=== PATIENT | male | born 1955 | race Caucasian/White ===

== ENCOUNTER → 2017-04-14 | Outpatient (REF) | payer OTHER ==
[~2017-04-14] MED LIST: ASPI81TA85 PO; ATOR40TA75 PO; CHEW500C2 PO; FIBEPOW PO; HYDR25TAB PO; MULTCAP; OCUVTAB4 PO; VITA500T88 PO; VITATAB11 PO
== END ==
LOC: M LAB REF 12:52
PROVIDERS: ATTEND Internal Medicine
DX: K14.0 Glossitis (principal)

== ENCOUNTER → 2017-10-31 | Outpatient (CLI) | payer OTHER | LOC: M RAD 07:47 | DX: R42 Dizziness and giddiness (principal) | CPT/HCPCS: 93880 ==

== ENCOUNTER → 2018-05-29 | Outpatient (REF) | payer OTHER | LOC: M LAB REF 12:14 | PROVIDERS: ATTEND Internal Medicine | DX: M10.9 Gout, unspecified (principal) ==

== ENCOUNTER → 2020-06-03 | Outpatient (CLI) | payer OTHER ==
[~2020-06-03] MED LIST changes: +AMLO1TAB24 PO; -ASPI81TA85 PO; +ASPI81TA86 PO; +CALC-362 PO; -CHEW500C2 PO; +D31000TA2 PO; +DEXT350P PO; +ECOT81TA5 PO; +FIBE625T PO; -FIBEPOW PO; +HYDR-2541 PO; -HYDR25TAB PO; +LOSA100T50 PO; +MELO15TA28 PO; +METF500T13 PO; +VITMTA PO
== END ==
LOC: M LABSMTC 12:41
PROVIDERS: ATTEND Anesthesiology
DX: Z20.828 Contact with and (suspected) exposure to other viral communicable diseases (principal)

== ENCOUNTER 2020-06-08 09:27 | Day surgery (SDC) | payer OTHER ==
[~2020-06-08] VITALS: Ht 177.8 cm; Wt 90.2 kg
[~2020-06-08 09:27] MED LIST changes: +NS 1,000 ML IV ONE
--- OUTSIDE RECORDS SUMMARY | 2020-06-08 09:31 | CCD | Continuity of Care Document ---
Author Author Butch CONTRERAS M.D. Organization Unknown Address [address] [place] [address] Phone [phone] Care Team Providers Care Road Engineer Freight Name Role Phone Jarred Wilhelm M.D. AUTM [phone] Problems Active Problems Provider Date Screening for malignant neoplasm of colon Edin love M.D. Onset: 05/28/2020 History of polyp of colon Dai ManzanoNEverardo Onset: Essential hypertension Onset: 11/21/2012 Social History Type Date Description Comments Sex Unknown ETOH Use Occasionally Tobacco Use Start: Unknown Patient has never smoked Allergies, Adverse Reactions, Alerts Active Allergies Reaction Severity Comments Date Codeine 11/21/2012 Talwin 11/21/2012 Medications Active Medications SIG Qnty Indications Ordering Provide r Date Sutab [id number] Tablets as directed 1box Edin Contreras M.D. 05/28/2020 Vitamin C Unknown Calcium Unknown Aspirin 81mg Tablets DR Unknown Multiple Vitamin Tablets Unknown Atorvastatin Calcium 40mg Tablets Unknown Fiber Tablets Unknown Amlodipine Besylate 5mg Tablets Take One Tablet By Mouth Every Day Unknown Meloxicam 15mg Tablets Take One Tablet By Mouth Every Day Unknown Metformin HCL 500mg Tablets Take One Tablet By Mouth In The Morning And 2 Tablets With Supper Unknown Losartan Potassium 100mg Tablets Take One Tablet By Mouth Every Day Unknown Vitamin D 125mcg (5000 Ut) Capsules Unknown Immunizations Description No Information Available Vital Signs Date Vital Result Comment 05/28/2020 9:59am Height 70 inches 5'10" Weight 210.00 lb BP Systolic 130 mmHg BP Diastolic 72 mmHg Heart Rate 72 /min BMI (Body Mass Index) 30.1 kg/m2 Weight 95.256 kg Body Temperature 97.9 F 04/02/2015 2:50pm Height 70 inches 5'10" Weight 217.00 lb BP Systolic 150 mmHg BP Diastolic 98 mmHg Heart Rate 76 /min BMI (Body Mass Index) 31.1 kg/m2 Weight 98.431 kg Results Description No Information Available Procedures Description No Information Available Medical Devices Description No Information Available Encounters Type Date Location Provider Dx Diagnosis Office Visit 05/28/2020 9:15a Main Office Edin Contreras M.D. Z 86.010 Personal history of colonic polyps Assessments Date Code Description Provider 05/28/2020 Z86.010 Personal history of colonic poly ps Edin Contreras M.D. Plan of Treatment Future Appointment(s):* 06/08/2020 11:00 am - Eidn Contreras M.D. at Main Office 05/28/2020 - Edin Contreras M.D.* Z86.010 Personal history of colonic polyps* Comments:* 65 yo wm who presents for a repeat colonoscopy due to a h/o adenomatous polyps in 2010, and 2012. Last scope in 2014 was normal. No c/o abdominal pain, weight loss, change in bowel habits, or rectal bleeding. No family h/o colon cancer. No c/o chest pain, or sob. Comorbid issues of Hyperlipidemia, or Hypertension.Plan:1.Schedule patient for Colonoscopy. 2. Informed consent given.3. Advised to stop asa, plavix,and anticoagulation 3 to 7 days prior to the procedures. Functional Status Description No Information Available Mental Status Description No Information Available Referrals Description No Information Available
--- OUTSIDE RECORDS SUMMARY | 2020-06-08 09:31 | CCD | Continuity of Care Document ---
Author Author Butch Wilhelm MD Organization Unknown Address [address] [place] [address] Phone [phone] Care Team Providers Care Accounting Systems Manager Name Role Phone Jarred Wilhelm JR, MD AUTM Unavailable Problems Active Problems Provider Date Benign essential hypertension Luis Manuel Alex D.O. Ons et: 11/30/2010 Pure hypercholesterolemia Luis Manuel Alex D.O. Onset: 11/30/2010 Type 2 diabetes mellitus Luis Manuel Alex D.O. Onset: 0 07/03/2013 Osteoarthritis Luis Manuel Alex D.O. Onset: 2013 Social History Type Date Description Comments Sex Unknown Tobacco Use Start: Unknown Never Smoked Cigarettes ETOH Use Occasionally consumes beer Tobacco Use Start: Unknown Patient has never smoked Exercise Type/Frequency Exercises regularly Seat Belt/Car Seat always uses seat belt Allergies, Adverse Reactions, Alerts Active Allergies Reaction Severity Comments Date Codeine NAUSEA 11/30/2010 Talwin Nx CHEST HEAVINEST 11/30/2010 Medications Active Medications SIG Qnty Indications Ordering Provide r Date Meloxicam 15mg Tablets 1 by mouth every day 90tabs Jarred Wilhelm MD 09/04/2019 Shingrix 50mcg/0.5ML Suspension Re c administer 0.5 milliliters intramuscular, repeat in 2 to 6 months 2units Jarred Wilhelm MD 05/30/2018 Clotrimazole 2% Cream apply to affected toes twice daily as needed 21gm B35.3 JESSICA Wolfe 08/2017 Cialis 20mg Tablets take by mouth as directed 5tabs Jarred Wilhelm MD 09/30/2016 Cinnamon 500mg Capsules 1 by mouth every day Luis Manuel Alex D.OTrinidad 03/24 Metformin HCL 500mg Tablets take one tablet by mouth in am and 2 with supper 270tabs Jarred Wilhelm MD 09/14/2015 Viagra 100mg Tablets as direc seth 10tabs Marcin MccarthyO. 03/10/2015 Atorvastatin Calcium 40mg Tablets take one tablet by mouth every day 90tabs Jarred Wilhelm MD 07/03/2013 Cozaar 100mg Tablets 1 by mouth every day 90tabs Jarred Wilhelm MD 01/02/2013 Multivitamins Tablets 1 po q d Marcin MccarthyOTrinidad 11/30/2010 Calcium 600 + D [id number] Tab lets 1 po bid Luis Manuel Alex D.O. 11/30 Vitamin D 400 400Unit Chewtabs Marcin MccarthyOTrinidad 11/30/2010 Aspir-[address] 1 po qd 30tabs Marcin MccarthyO. 11/30/2010 Ocuvite Adult Formula Capsules 1 po qd Marcin MccarthyOTrinidad 11/30/2010 Immunizations CPT Code Status Date Vaccine Lot # U-Flu Given 02/13/2020 Influenza,Unspecified [id number] Given 01/28/2019 Influenza Vaccin e Quadrivalent Preser/Antibiotic Free Im Use 36053 Given 11/20/2018 Shingrix Zoster Vaccine (HZV), Recombinant, Subunit, Adjuvanted 40669 Given 03/15/2010 Adacel- Tetanus Diphtheria P ertussis (Age64 & Under) [id number] Refused 01/26/2018 Influenza Virus Vaccine, Quadrivalent ([id number]), Derived From Cell Vital Signs Date Vital Result Comment 03/17/2020 8:05am BP Systolic 132 mmHg BP Diastolic 84 mmHg Heart Rate 80 /min Height 69.50 inches 5'9.50" Weight 192.00 lb O2 % BldC Oximetry 98 % BMI (Body Mass Index) 27.9 kg/m2 09/04/2019 8:24am BP Systolic 134 mmHg BP Diastolic 76 mmHg Heart Rate 76 /min Height 69.50 inches 5'9.50" Weight 191.00 lb BMI (Body Mass Index) 27.8 kg/m2 Results Description No Information Available Procedures Date Code Description Status 03/10/2020 [id number] Diabetic Retinal Eye Exam Comple seth 09/11/2019 [id number] Diabetic Retinal Eye Exam Comple seth 01/07/2019 [id number] Diabetic Retinal Eye Exam Comple seth 07/02/2018 [id number] Diabetic Retinal Eye Exam Comple seth 10/21/2017 [id number] Diabetic Retinal Eye Exam Comple seth 11/29/2016 [id number] Diabetic Foot Exam Completed 06/25/2016 [id number] Diabetic Retinal Eye Exam Comple [facility] 04/06/2015 [id number] Colonoscopy Completed 12/21/2012 [id number] Colonoscopy Completed 07/21/2011 [id number] Diabetic Retinal Eye Exam Comple [facility] 12/15/2010 [id number] Diabetic Retinal Eye Exam Comple [facility] 05/20/2010 [id number] Diabetic Retinal Eye Exam Comple [facility] 10/29/2009 [id number] Diabetic Retinal Eye Exam Comple [facility] 04/02/2009 [id number] Diabetic Retinal Eye Exam Comple [facility] 09/11/2008 [id number] Diabetic Retinal Eye Exam Comple [facility] Medical Devices Description No Information Available Encounters Description No Information Available Assessments Description No Information Available Plan of Treatment No Information Available Functional Status Description No Information Available Mental Status Description No Information Available Referrals Description No Information Available
--- OUTSIDE RECORDS SUMMARY | 2020-06-08 09:31 | CCD | Continuity of Care Document ---
Author Author Butch CONTRERAS M.D. Organization Unknown Address [address] [place] [address] Phone [phone] Care Team Providers Care Horse Trader Name Role Phone Jarred Wilhelm M.D. AUTM [phone] Problems Active Problems Provider Date Screening for [...] Qnty Indications Ordering Provide r Date Sutab [id number] Tablets as directed 1box Edin Contreras M.D. [...] Available Encounters Description No Information Available Assessments Date Code Description Provider 05/28/2020 Z86.010 Personal history of colonic poly ps Edin Contreras M.D. Plan of Treatment Future Appointment(s):* 06/08/2020 11:00 am - Edin Contreras M.D. at Main Office 05/28/2020 - [...]
--- OUTSIDE RECORDS SUMMARY | 2020-06-08 09:31 | CCD ---
Author Author [facility] Organization [facility] Address Unknown Phone Unavailable Care Team Providers Care Jailer Chief Name Role Phone Juan Carlos Contreras MD Unavailable Unavailable Juan Carlos Contreras MD Unavailable Unavailable Juan Carlos Contreras MD Unavailable Unavailable Juan Carlos Contreras MD Unavailable Unavailable Juan Carlos Contreras MD Unavailable Unavailable Juan Carlos Contreras MD Unavailable Unavailable Juan Carlos Contreras MD Unavailable Unavailable Juan Carlos Contreras MD Unavailable Unavailable Juan Carlos Contreras MD Unavailable Unavailable Juan Carlos Contreras MD Unavailable Unavailable Juan Carlos Contreras MD Unavailable Unavailable Juan Carlos Contreras MD Unavailable Unavailable Juan Carlos Contreras MD Unavailable Unavailable Juan Carlos Contreras MD Unavailable Unavailable Juan Carlos Contreras MD Unavailable Unavailable Juan Carlos Contreras MD Unavailable Unavailable Juan Carlos Contreras MD Unavailable Unavailable Juan Carlos Contreras MD Unavailable Unavailable Juan Carlos Contreras MD Unavailable Unavailable Juan Carlos Contreras MD Unavailable Unavailable Juan Carlos Contreras MD Unavailable Unavailable Juan Carlos Contreras MD Unavailable Unavailable Juan Carlos Contreras MD Unavailable Unavailable Juan Carlos Contreras MD Unavailable Unavailable Juan Carlos Contreras MD Unavailable Unavailable Juan Carlos Contreras MD Unavailable Unavailable Juan Carlos Contreras MD Unavailable Unavailable Juan Carlos Contreras MD Unavailable Unavailable Diane, S Edin MD Unavailable Unavailable Diane, S Edin MD Unavailable Unavailable Diane, S Edin MD Unavailable Unavailable Diane, S Edin MD Unavailable Unavailable Diane, S Edin MD Unavailable Unavailable Diane, S Edin MD Unavailable Unavailable Diane, S Edin MD Unavailable Unavailable Diane, S Edin MD Unavailable Unavailable Diane, S Edin MD Unavailable Unavailable Diane, S Edin MD Unavailable Unavailable Diane, S Edin MD Unavailable Unavailable Diane, S Edin MD Unavailable Unavailable Diane, S Edin MD Unavailable Unavailable Diane, S Edin MD Unavailable Unavailable Diane, S Edin MD Unavailable Unavailable Diane, S Edin MD Unavailable Unavailable Diane, S Edin MD Unavailable Unavailable Diane, S Edin MD Unavailable Unavailable Diane, S Edin MD Unavailable Unavailable Diane, S Edin MD Unavailable Unavailable Diane, S Edin MD Unavailable Unavailable Diane, S Edin MD Unavailable Unavailable Giles Alfonso, Jassi Handley MD, FACS Unavailable Unavailable Giles Alfonso, Jassi Handley MD, FACS Unavailable Unavailable Giles Alfonso, Jassi Handley MD, FACS Unavailable Unavailable Giles Alfonso, Jassi Handley MD, FACS Unavailable Unavailable Giles Alfonso, Jassi Handley MD, FACS Unavailable Unavailable Giles Alfonso, Jassi Handley MD, FACS Unavailable Unavailable Giles Alfonso, Jassi Handley MD, FACS Unavailable Unavailable Giles Alfonso, Jassi Handley MD, FACS Unavailable Unavailable Giles Alfonso, Jassi Handley MD, FACS Unavailable Unavailable Giles Alfonso, Jassi Handley MD, FACS Unavailable Unavailable Giles Alfonso, Jassi Handley MD, FACS Unavailable Unavailable Giles Alfonso, Jassi Handley MD, FACS Unavailable Unavailable Giles Alfonso, Jassi Handley MD, FACS Unavailable Unavailable Giles Alfonso, Jassi Handley MD, FACS Unavailable Unavailable Giles Alfonso, Jassi Handley MD, FACS Unavailable Unavailable Giles Alfonso, Jassi Handley MD, FACS Unavailable Unavailable Giles Alfonso, Jassi Handley MD, FACS Unavailable Unavailable Giles Alfonso, Jassi Handley MD, FACS Unavailable Unavailable Giles Alfonso, Jassi Handley MD, FACS Unavailable Unavailable Giles Alfonso, Jassi Handley MD, FACS Unavailable Unavailable Giles Alfonso, Jassi Handley MD, FACS Unavailable Unavailable Giles Alfonso, Jassi Handley MD, FACS Unavailable Unavailable Giles Alfonso, Jassi Handley MD, FACS Unavailable Unavailable Giles Alfonso, Jassi Handley MD, FACS Unavailable Unavailable Giles Alfonso, Jassi Handley MD, FACS Unavailable Unavailable Giles Alfonso, Jassi Handley MD, FACS Unavailable Unavailable Giles Alfonso, Jassi Handley MD, FACS Unavailable Unavailable Giles Alfonso, Jassi Handley MD, FACS Unavailable Unavailable Giles Alfonso, Jassi Handley MD, FACS Unavailable Unavailable Giles Alfonso, Jassi Handley MD, FACS Unavailable Unavailable Giles Alfonso, Jassi Handley MD, FACS Unavailable Unavailable Giles Alfonso, Jassi Handley MD, FACS Unavailable Unavailable Jassi Nguyen MD, FACS Unavailable Unavailable Jassi Nguyen MD, FACS Unavailable Unavailable MAJAK, R TOOTIE DPM Unavailable Unavailable MAJAK, R TOOTIE DPM Unavailable Unavailable MAJAK, R TOOTIE DPM Unavailable Unavailable MAJAK, R TOOTIE DPM Unavailable Unavailable MAJAK, R TOOTIE DPM Unavailable Unavailable MAJAK, R TOOTIE DPM Unavailable Unavailable MAJAK, R TOOTIE DPM Unavailable Unavailable MAJAK, R TOOTIE DPM Unavailable Unavailable MAJAK, R TOOTIE DPM Unavailable Unavailable MAJAK, R TOOTIE DPM Unavailable Unavailable MAJAK, R TOOTIE DPM Unavailable Unavailable MAJAK, R TOOTIE DPM Unavailable Unavailable MAJAK, R TOOTIE DPM Unavailable Unavailable MAJAK, R TOOTIE DPM Unavailable Unavailable MAJAK, R TOOTIE DPM Unavailable Unavailable MAJAK, R TOOTIE DPM Unavailable Unavailable MAJAK, R TOOTIE DPM Unavailable Unavailable MAJAK, R TOOTIE DPM Unavailable Unavailable MAJAK, R TOOTIE DPM Unavailable Unavailable MAJAK, R TOOTIE DPM Unavailable Unavailable MAJAK, R TOOTIE DPM Unavailable Unavailable MAJAK, R TOOTIE DPM Unavailable Unavailable MAJAK, R TOOTIE DPM Unavailable Unavailable MAJAK, R TOOTIE DPM Unavailable Unavailable MAJAK, R TOOTIE DPM Unavailable Unavailable MAJAK, R TOOTIE DPM Unavailable Unavailable MAJAK, R TOOTIE DPM Unavailable Unavailable MAJAK, R TOOTIE DPM Unavailable Unavailable MAJAK, R TOOTIE DPM Unavailable Unavailable MAJAK, R TOOTIE DPM Unavailable Unavailable Zonia Wilhelm MD Unavailable Unavailable Zonia Wilhelm MD Unavailable Unavailable Zonia Wilhelm MD Unavailable Unavailable Zonia Wilhelm MD Unavailable Unavailable Zonia Wilhelm MD Unavailable Unavailable Zonia Wilhelm MD Unavailable Unavailable Zonia Wilhelm MD Unavailable Unavailable Zonia Wilhelm MD Unavailable Unavailable Zonia Wilhelm MD Unavailable Unavailable Zonia Wilhelm MD Unavailable Unavailable ChocoZonia harp MD Unavailable Unavailable ChocoZonia harp MD Unavailable Unavailable ParksZonia harp MD Unavailable Unavailable ParksZonia harp MD Unavailable Unavailable ChocoZonia harp MD Unavailable Unavailable ChocoZonia harp MD Unavailable Unavailable ChocoZonia harp MD Unavailable Unavailable ParksZonia harp MD Unavailable Unavailable ParksZonia harp MD Unavailable Unavailable ParksZonia MD Unavailable Unavailable ParksZonia MD Unavailable Unavailable ChocoZonia MD Unavailable Unavailable ChocoZonia MD Unavailable Unavailable ParksZonia MD Unavailable Unavailable ChocoZonia MD Unavailable Unavailable ParksZonia MD Unavailable Unavailable ChocoZonia MD Unavailable Unavailable ChocoZonia MD Unavailable Unavailable ParksZonia MD Unavailable Unavailable ParksZonia MD Unavailable Unavailable ParksZonia MD Unavailable Unavailable ChocoZonia MD Unavailable Unavailable ChocoZonia MD Unavailable Unavailable ChocoZonia MD Unavailable Unavailable ChocoZonia MD Unavailable Unavailable ParksZonia MD Unavailable Unavailable ParksZonia MD Unavailable Unavailable ChocoZonia MD Unavailable Unavailable ChocoZonia MD Unavailable Unavailable ParksZonia MD Unavailable Unavailable ChocoZonia MD Unavailable Unavailable ParksZonia MD Unavailable Unavailable ParksZonia MD Unavailable Unavailable ParksZonia MD Unavailable Unavailable ParksZonia MD Unavailable Unavailable ParksZonia MD Unavailable Unavailable ParksZonia MD Unavailable Unavailable ParksZonia MD Unavailable Unavailable ChocoZonia MD Unavailable Unavailable ParksZonia MD Unavailable Unavailable ParksZonia MD Unavailable Unavailable ChocoZonia MD Unavailable Unavailable ParksZonia MD Unavailable Unavailable ParksZonia MD Unavailable Unavailable ChocoZonia harp MD Unavailable Unavailable ParksZonia harp MD Unavailable Unavailable ParksZonia MD Unavailable Unavailable ParksZonia harp MD Unavailable Unavailable ChocoZonia MD Unavailable Unavailable ParksZonia MD Unavailable Unavailable ParksZonia harp MD Unavailable Unavailable ParksZonia harp MD Unavailable Unavailable ParksZonia harp MD Unavailable Unavailable ChocoZonia MD Unavailable Unavailable ParksZonia MD Unavailable Unavailable ParksZonia MD Unavailable Unavailable ChocoZonia MD Unavailable Unavailable ChocoZonia MD Unavailable Unavailable ChocoZonia MD Unavailable Unavailable ParksZonia MD Unavailable Unavailable ChocoZonia MD Unavailable Unavailable ChocoZonia MD Unavailable Unavailable ParksZonia MD Unavailable Unavailable ParksZonia MD Unavailable Unavailable Parks, F Stern MD Unavailable Unavailable ChocoZonia MD Unavailable Unavailable ParksZonia MD Unavailable Unavailable ChocoZonia MD Unavailable Unavailable ChocoZonia MD Unavailable Unavailable ChocoZonia MD Unavailable Unavailable ChocoZonia MD Unavailable Unavailable ChocoZonia MD Unavailable Unavailable ChocoZonia MD Unavailable Unavailable ChocoZonia MD Unavailable Unavailable ChocoZonia MD Unavailable Unavailable ParksZonia MD Unavailable Unavailable Re-disclosure Warning The records that you are about to access may contain information from federally-assisted alcohol or drug abuse programs. If such information is present, then the following federally mandated warning applies: This information has been disclosed to you from records protected by federal confidentiality rules (42 CFR part 2). The federal rules prohibit you from making any further disclosure of this information unless further disclosure is expressly permitted by the written consent of the person to whom it pertains or as otherwise permitted by 42 CFR part 2. A general authorization for the release of medical or other information is NOT sufficient for this purpose. The Federal rules restrict any use of the information to criminally investigate or prosecute any alcohol or drug abuse patient.The records that you are about to access may contain highly sensitive health information, the redisclosure of which is protected by Article 27-F of the [facility] Public Health law. If you continue you may have access to information: Regarding HIV / AIDS; Provided by facilities licensed or operated by the [facility] Office of Mental Health; or Provided by the [facility] Office for People With Developmental Disabilities. If such information is present, then the following [facility] mandated warning applies: This information has been disclosed to you from confidential records which are protected by state law. State law prohibits you from making any further disclosure of this information without the specific written consent of the person to whom it pertains, or as otherwise permitted by law. Any unauthorized further disclosure in violation of state law may result in a fine or penitentiary sentence or both. A general authorization for the release of medical or other information is NOT sufficient authorization for further disc losure. Family History Family Member Name Family Member Gender Family Member Status Date o f Status Description Data Source(s) Unknown Female Problem [facility] ([facility]) Unknown Unknown Problem [facility] ([facility]) Unknown Male Problem [facility] ([facility] Unknown Female Encounters Encounter Providers Location Date Indications Data Source(s ) Office Visit Attender: Edin Contreras MD Main Office 08:15:00 AM EST [facility] ([facility] ) Outpatient Attender: Jarred Wilhelm [place] [address] 05/17/2019 07:20:00 AM EST [facility] ([facility] ) Outpatient Attender: TOOTIE BRUNO [facility] Office 01/23 08:00:00 AM EDT [facility] ([facility] Outpatient<td ID="encounterTypeDescripti onID0">8 Month Follow-Up</td><td>Ender Calvin MD, FACS</td><td>Ender Calvin MD [facility]</td><td>09/11/2019</td><td><content ID="encounterDiagnosisID0-0">Diabetes Mellitus Type 2 - Uncomplicated, Controlled</content>, <content ID="encounterDiagnosisID0-1">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</content>, <content ID="encounterDiagnosisID0-2">Essential Hypertension</content>, <content ID="encounterDiagnosisID0-3">Assessment of Taking Medication For Diabetes Long-term Use of Oral Hypoglycemics</content>, <content ID="encounterDiagnosisID0-4">Retinopathy Hypertensive</content></td> Attender: Ender Alfonso MD, FACS Ender Calvin MD [facility] 09/11/2019 07:39:0 0 AM EDT - 09/11/2019 08:15:00 AM EDT Retinopathy HypertensiveAssessment of Ta erick Medication For Diabetes Long-term Use of Oral HypoglycemicsEssential Hypertension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Diabetes Mellitus Type 2 - Uncomplicated, ControlledRetinopathy HypertensiveAssessment of Taking Medication For Diabetes Long-term Use of Oral HypoglycemicsEssential Hypertension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Diabetes Mellitus Type 2 - Uncomplicated, ControlledRetinopathy HypertensiveAssessment of Taking Medication For Diabetes Long-term Use of Oral HypoglycemicsEssential Hypertension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Diabetes Mellitus Type 2 - Uncomplicated, Controlled [facility] (Ender Alfonso MD [facility]) Retinopathy Hypertensive Assessment of Taking Medication For Diab etes Long-term Use of Oral Hypoglycemics Essential Hypertension 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 Diabetes Mellitus Type 2 - Uncomplicated , Controlled Retinopathy Hypertensive Assessment of Taking Medication For Diab etes Long-term Use of Oral Hypoglycemics Essential Hypertension 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 Diabetes Mellitus Type 2 - Uncomplicated , Controlled Retinopathy Hypertensive Assessment of Taking Medication For Diab etes Long-term Use of Oral Hypoglycemics Essential Hypertension 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 Diabetes Mellitus Type 2 - Uncomplicated , Controlled Outpatient Attender: Jarred Mahmood 0 09/04/2019 08:40:00 AM EDT [facility] ([facility] ) Immunizations Vaccine Date Status Description Data Source(s) This CVX code allows reporting of a vacc ination when formulation is unknown (for example, when recording a Influenza vaccination when noted on a vaccination card) 02/13/2020 08:08:00 AM EDT completed MEDEN T ([facility]) INFLUENZA VIRUS VACCINE QUADRIVALENT 2019- (6 MOS AN D UP) 01/26/2020 12:00:00 AM EDT completed [facility] Medications Medication Brand Name Start Date Product Form Dose Route Admi nistrative Instructions Pharmacy Instructions Status Indications Reaction Description Data Source(s) 1.479-0.188 gram 06/02/2020 12:00:00 AM EST tablet 24 TAKE DIRECTED TAKE DIRECTED SOLD: 06/02/2020 [facility] Sutab Sutab 05/28/2020 12:00:00 AM EST active [facility] ([facility]) Amlodipine 5 MG Oral Tablet Amlodipine Besylate 03/17/2020 12:00:00 A M EST ORAL active [facility] ([facility]) 15 mg 09/04/2019 12:00:00 AM EDT tablet 30 TAKE ONE TABLET BY MOUTH EVERY DAY TAKE ONE TABLET BY MOUTH EVERY DAY SOLD: 09/07/2019 [facility] meloxicam 15 MG Oral Tablet Meloxicam 09/04/2019 12:00:00 AM EDT ORAL active [facility] ([facility]) 15 mg 09/04/2019 12:00:00 AM EDT tablet 30 TAKE ONE TABLET BY MOUTH EVERY DAY TAKE ONE TABLET BY MOUTH EVERY DAY SOLD: 10/08/2019 [facility] Insurance Providers Payer name Policy type / Coverage type Policy ID Covered alliance party ID Covered alliance party's relationship to hoover Policy [place] Plan Information [facility] [id number] SP [id number] MVP Commercial [id number] Self [id number] [employer] Workers Compensation [id number] Self [id number] [facility] Healthcare Commercial [id number] Family Dependent [id number] [employer] Workers Compensation [id number] Self [id number] [facility] Health Plans Commercial [id number] Family Dependent [id number] [employer] Workers Compensation [id number] Self [id number] MVP Commercial [id number] Family Dependent [id number] [facility] O [id number] S [id number] [employer] Workers Compensation [id number] Self [id number] [facility] Health Plans Commercial [id number] Family Dependent [id number] [employer] Workers Compensation [id number] Self [id number] [employer] Workers Compensation Self [facility] Commercial Indemnity Family Dependent Indemnity [facility] PHY [id number] SP [id number] [facility] Health Care Health Maintenance Organization (HMO) Self MV Commercial Family Dependent 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 [id number] SP [id number] SP [id number] [facility] PHY [id number] SP [id number] Problems, Conditions, and Diagnoses Code Display Name Description Problem Type Effective Dates Data Source(s) 888667502 Screening for malignant neoplasm of colo n Screening for malignant neoplasm of colon Problem 05/28/2020 12:00:00 AM EST [facility] ([facility]) Surgeries/Procedures Procedure Description Date Indications Data Source(s) Diabetic Retinal Eye Exam 03/10/2020 12:00:00 AM EST [facility] ([facility]) Diabetic Retinal Eye Exam 09/11/2019 12:00:00 AM EDT [facility] ([facility]) History of the retina was abnormal 01/07/2019 History o f the retina was abnormal 01/07/2019 09/11/2019 12:00:00 AM EDT [facility] (Shaheed Alfonso MD [facility]) Intermediate Eye Exam Established Patient Intermediate Eye Exam Established Patient 09/11/2019 12:00:00 AM EDT [facility] (Shaheed Alfonso MD [facility]) No recent change in medical history No recent change in medi [place] history 09/11/2019 12:00:00 AM EDT [facility] (Ender rodriguez MD [facility]) Currently wearing eyeglasses Currently wearing eyeglasses 12:00:00 AM EDT [facility] (Ender Alfonso MD [facility]) History of diabetes mellitus A1c: 6.7, FBS: around 11 1-128 History of diabetes mellitus A1c: 6.7, FBS: around 111-128 09/11/2019 12:00:00 AM EDT [facility] (Ender Alfonso MD [facility]) Reported medical history Reported medical history 09/11/2019 12:00: 00 AM EDT [facility] (Ender Alfonso MD [facility]) History of hypertension History of hypertension 09/11/2019 12:00:00 AM EDT [facility] (Ender Alfonso MD [facility]) History of fundoscopic exam through dilated pupils was performed 07/02/2018 History of fundoscopic exam through dilated pupils was performed 07/02/2018 09/11/2019 12:00:00 AM EDT [facility] (Ender rodriguez MD [facility]) History of arthritis History of arthritis 09/11/2019 12:00:00 AM ED T [facility] (Ender Alfonso MD [facility]) History of diabetes mellitus A1c: around 6.5, FBS: 15 1 History of diabetes mellitus A1c: around 6.5, FBS: 151 09/11/2019 12:00:00 AM EDT [facility] (Ender Alfonso MD [facility]) Surgical / procedural history Knee Surg kevon left knee and right knee, Torn Rotator Cuff left and right with Shoulder, Left wrist Surgical / procedural history Knee Surgery left knee and right knee, Torn Rotator Cuff left and right with Shoulder, Left wrist 09/11/2019 12:00:00 AM EDT [place] (Ender Alfonso MD [facility]) ECG ROUTINE ECG W/LEAST 12 LDS W/I&R 09/04/2019 12:00: 00 AM EDT [facility] ([facility]) Results ID Date Data Source [id number] 06/03/2020 12:00:00 PM EST [facility] Name Value Range Interpretation Code Description Data Sharita rce(s) Supporting Document(s) SARS coronavirus 2 RNA Not Detected [facility] This lab was ordered by [facility] and reported by [facility]. ID Date Data Source [id number] 03/17/2020 08:33:00 AM EST [facility] ([facility]) Name Value Range Interpretation Code Description Data Sharita rce(s) Supporting Document(s) Microalbumin Urine 9.4 mg/L 1.3-20.0 [facility] Urine Creatinine 146.0 mg/dL 30.0-125.0 [facility] ([facility] Microalb/Creat Ratio 6.4 ug/mg 0.0-30.0 [facility] ID Date Data Source [id number] 03/17/2020 08:33:00 AM EST [facility] ([facility]) Name Value Range Interpretation Code Description Data Sharita rce(s) Supporting Document(s) Triglyceride [Mass/volume] in Serum or Plasma 49 mg/dL 30-150 [facility] ([facility]) Cholesterol [Mass/volume] in Serum or Plasma 130 mg/dL 131-200 [facility] ([facility]) Cholesterol in HDL [Mass/volume] in Serum or Plasma 56 mg/dL 35-60 [facility] ([facility]) Cholesterol in LDL [Mass/volume] in Serum or Plasma by calcu lation 64 CALC 50-159 [facility] ([facility]) ID Date Data Source [id number] 03/17/2020 08:33:00 AM EST [facility] ([facility]) Name Value Range Interpretation Code Description Data Sharita rce(s) Supporting Document(s) Glucose mean value [Mass/volume] in Blood Estimated fr om glycated hemoglobin 148 mg/dL 60-110 [facility] ([facility] ) Hemoglobin A1c/Hemoglobin.total in Blood 6.8 % [facility] ([facility]) Lab Result Notes: Pre-Diabetes 5.7 - 6.4 % Diabetes = or > 6.5% ID Date Data Source [id number] 03/17/2020 08:33:00 AM EST [facility] ([facility]) Name Value Range Interpretation Code Description Data Sharita rce(s) Supporting Document(s) Glucose [Mass/volume] in Serum or Plasma 139 mg/dL 74-99 [facility] ([facility]) 100-125 mg/dL PRE-DIABETES/FASTING >126 mg/dL DIABETES/FASTING Urea nitrogen [Mass/volume] in Serum or Plasma 15 mg/dL 7-18 [facility] ([facility]) Creatinine 1.0 mg/dL 0.6-1.3 [facility] ([facility]) Potassium [Moles/volume] in Serum or Plasma 4.5 meq/L 3.5-5.1 [facility] ([facility]) Sodium [Moles/volume] in Serum or Plasma 139 meq/L 136-145 [facility] ([facility]) Chloride [Moles/volume] in Serum or Plasma 103 meq/L 98-107 [facility] ([facility]) Calcium [Mass/volume] in Serum or Plasma 9.4 mg/dL 8.5-10.1 [facility] ([facility]) Carbon dioxide, total [Moles/volume] in Serum or Plasma 27 meq/L 21 -32 [facility] Total Bilirubin 1.2 mg/dL 0.2-1.0 [facility] ([facility]) Alkaline phosphatase isoenzyme [Units/volume] in Serum or Pl asma 69 mg/dL 46-116 [facility] ([facility]) Aspartate aminotransferase [Enzymatic activity/volume] in Serum or Plasma 20 U/L 15-37 [facility] ([facility] ) Alanine aminotransferase [Enzymatic activity/volume] in Seru m or Plasma 37 U/L 12-78 [facility] ([facility]) Albumin [Mass/volume] in Serum or Plasma 4.4 g/dL 3.4-5.0 [facility] ([facility]) A/G Ratio 1.63 CALC 1.00-1.90 [facility] ([facility]) Proteinase 3 Ab [Units/volume] in Serum 7.1 g/dL 6.4-8.2 [facility] ([facility]) Glomerular filtration rate/1.73 sq M pre dicted among blacks [Volume Rate/Area] in Serum or Plasma by Creatinine-based formula (MDRD) Laboratory test result [facility] ([facility]) <content>CHRONIC KIDNEY DISEASE STAGING PER NKF</content>
<content></content>
<content>STAGE I & II GFR >= 60 NORMAL TO MILDLY DECREASED</content>
<content>STAGE III GFR 30-59 MODERATELY DECREASED</content>
<content>STAGE IV GFR 15-29 SEVERELY DECREASED</content>
<content>STAGE V GFR <15 VERY LITTLE GFR LEFT</content>
<content>ESRD GFR <15 ON SOFTWARE ANALYST</content>
<content></content> Glomerular filtration rate/1.73 sq M pre dicted among non-blacks [Volume Rate/Area] in Serum or Plasma by Creatinine-based formula (MDRD) Laboratory test result [facility] ([facility] ) ID Date Data Source [id number] 03/17/2020 08:33:00 AM EST [facility]) Name Value Range Interpretation Code Description Data Sharita rce(s) Supporting Document(s) Erythrocytes [#/volume] in Blood by Automated count 4.78 x10*6/UL 4.2 0-6.30 [facility] Leukocytes [#/volume] in Blood by Automated count 6.8 x10*3/UL 4.1-10 .9 [facility] Hematocrit [Volume Fraction] of Blood by Automated count 45.3 % 3 7.0-51.0 [facility]) Hemoglobin [Mass/volume] in Blood 15.3 g/dL 12.0-18.0 [facility] ([facility]) MCV 94.6 fL 80.0-97.0 [facility] ([facility]) Erythrocyte distribution width [Ratio] by Automated count 13.2 % 11.6-13.7 [facility] MCH 32.0 pg 26.0-32.0 [facility] ([facility]) MCHC 33.8 g/dL 31.0-38.0 [facility] ([facility]) Platelets [#/volume] in Blood by Automated count 281 x10*3/UL 140-440 [facility] ([facility]) Lymph % 22.6 % 10.0-58.5 [facility] MPV 6.9 FL 7.8-11.0 [facility] Neut % 71.9 % 37.0-92.0 [facility] Mid % 5.5 % 1.7-9.3 [facility] ([facility] Neut # 4.9 x10*3/UL 2.0-7.8 [facility] ([facility]) Lymph # 1.5 x10*3/UL 0.6-4.1 [facility] ([facility]) Mid # 0.4 x10*3/UL 0.1-0.6 [facility] ([facility]) ID Date Data Source [id number] 09/04/2019 08:21:00 AM EDT [facility] ([facility]) Name Value Range Interpretation Code Description Data Sharita rce(s) Supporting Document(s) Urine Creatinine 145.4 mg/dL 30.0-125.0 [facility] ([facility]) Microalbumin Urine 6.6 mg/L 1.3-20.0 [facility] ([facility]) Microalb/Creat Ratio 4.5 ug/mg 0.0-30.0 [facility] ([facility]) ID Date Data Source [id number] 09/04/2019 08:21:00 AM EDT [facility] ([facility]) Name Value Range Interpretation Code Description Data Sharita rce(s) Supporting Document(s) Cholesterol [Mass/volume] in Serum or Plasma 109 mg/dL 131-200 [facility] ([facility]) Triglyceride [Mass/volume] in Serum or Plasma 21 mg/dL 30-150 [facility] ([facility]) Cholesterol in LDL [Mass/volume] in Serum or Plasma by calcu lation 56 CALC 50-159 [facility] ([facility]) Cholesterol in HDL [Mass/volume] in Serum or Plasma 49 mg/dL 35-60 [facility] ([facility]) ID Date Data Source [id number] 09/04/2019 08:21:00 AM EDT [facility] ([facility]) Name Value Range Interpretation Code Description Data Sharita rce(s) Supporting Document(s) Glucose [Mass/volume] in Serum or Plasma 134 mg/dL 74-99 [facility] ([facility]) 100-125 mg/dL PRE-DIABETES/FASTING >126 mg/dL DIABETES/FASTING Urea nitrogen [Mass/volume] in Serum or Plasma 14 mg/dL 7-18 [facility] ([facility]) Potassium [Moles/volume] in Serum or Plasma 4.7 meq/L 3.5-5.1 [facility] ([facility]) Creatinine 0.9 mg/dL 0.6-1.3 [facility]) Sodium [Moles/volume] in Serum or Plasma 141 meq/L 136-145 [facility] ([facility]) Carbon dioxide, total [Moles/volume] in Serum or Plasma 27 meq/L 21 -32 [facility] ([facility]) Chloride [Moles/volume] in Serum or Plasma 105 meq/L 98-107 [facility] ([facility]) Calcium [Mass/volume] in Serum or Plasma 8.9 mg/dL 8.5-10.1 [facility] ([facility]) Aspartate aminotransferase [Enzymatic activity/volume] in Serum or Plasma 26 U/L 15-37 [facility] ([facility] ) Alkaline phosphatase isoenzyme [Units/volume] in Serum or Pl asma 75 mg/dL 46-116 [facility] ([facility]) Total Bilirubin 1.2 mg/dL 0.2-1.0 [facility] ([facility]) Alanine aminotransferase [Enzymatic activity/volume] in Seru m or Plasma 41 U/L 12-78 [facility] ([facility]) Albumin [Mass/volume] in Serum or Plasma 4.1 g/dL 3.4-5.0 [facility] ([facility]) Proteinase 3 Ab [Units/volume] in Serum 7.0 g/dL 6.4-8.2 [facility] ([facility]) A/G Ratio 1.41 CALC 1.00-1.90 [facility] ([facility]) Glomerular filtration rate/1.73 sq M pre dicted among blacks [Volume Rate/Area] in Serum or Plasma by Creatinine-based formula (MDRD) Laboratory test result [facility] ([facility]) <content>CHRONIC KIDNEY DISEASE STAGING PER NKF</content>
<content></content>
<content>STAGE I & II GFR >= 60 NORMAL TO MILDLY DECREASED</content>
<content>STAGE III GFR 30-59 MODERATELY DECREASED</content>
<content>STAGE IV GFR 15-29 SEVERELY DECREASED</content>
<content>STAGE V GFR <15 VERY LITTLE GFR LEFT</content>
<content>ESRD GFR <15 ON SOFTWARE ANALYST</content>
<content></content> Glomerular filtration rate/1.73 sq M pre dicted among non-blacks [Volume Rate/Area] in Serum or Plasma by Creatinine-based formula (MDRD) Laboratory test result [facility] ([facility] ) ID Date Data Source [id number] 09/04/2019 08:21:00 AM EDT [facility]) Name Value Range Interpretation Code Description Data Sharita rce(s) Supporting Document(s) Prostate specific Ag [Mass/volume] in Serum or Plasma 1.08 ng/mL [facility] ([facility]) This assay was performed on the Siemens Dimension EXL using the B- Galactosidase/CPRG methodology and should not be compared interchangeably with other methods. The PSA should not be used alone as a screening test for the presence or absence of malignant disease. ID Date Data Source [id number] [facility] Name Value Range Interpretation Code Description Data Sharita rce(s) Supporting Document(s) Hemoglobin A1c/Hemoglobin.total in Blood 6.9 g/dL 4.8-5.6 [facility] ([facility]) Lab Result Notes: Pre-Diabetes 5.7 - 6.4 % Diabetes = or > 6.5% Glucose mean value [Mass/volume] in Blood Estimated fr om glycated hemoglobin 151 mg/dL 60-110 [facility] ([facility] ) ID Date Data Source [id number] 09/04/2019 08:21:00 AM EDT [facility] ([facility]) Name Value Range Interpretation Code Description Data Sharita rce(s) Supporting Document(s) Prostate specific Ag [Mass/volume] in Serum or Plasma Laboratory test result [facility] ([facility]) Hemoglobin A1c/Hemoglobin.total in Blood Laboratory test result [facility] ([facility]) Procedure Social History Code Duration Value Status Description Data Source(s ) Smoking 09/11/2019 08:50:26 AM EDT Never smoked tobacco (findi ng) completed Never smoked tobacco (finding) [facility] ([facility]so [facility]) Smoking 09/11/2019 08:48:39 AM EDT Never smoked tobacco (findi ng) completed Never smoked tobacco (finding) [facility] ([facility]der Alfonso [facility]) Smoking 09/11/2019 08:45:05 AM EDT Never smoked tobacco (findi ng) completed Never smoked tobacco (finding) [facility] ([facility]der Alfonso [facility]) Vital Signs ID Date Data Source UNK Name Value Range Interpretation Code Description Data Source(s) Body temperature 97.9 [degF] 97.9 [degF] [facility] ([facility]) Body weight 95.256 kg 95.256 kg [facility] ([facility]) Body mass index (BMI) [Ratio] 30.1 kg/m2 30.1 k g/m2 [facility] ([facility]) Heart rate 72 /min 72 /min [facility] Diastolic blood pressure 72 mm[Hg] 72 mm[Hg] [facility]) Systolic blood pressure 130 mm[Hg] 130 mm[Hg] M [facility] Body weight 210.00 [lb_av] 210.00 [lb_av] [facility] ([facility]) Body height 70 [in_i] 70 [in_i] [facility] ([facility]) 5'10" Body mass index (BMI) [Ratio] 27.9 kg/m2 27.9 k g/m2 [facility] ([facility]) Oxygen saturation in Arterial blood by Pulse oximetry 98 % 98 % [facility] ([facility]) Body weight 192.00 [lb_av] 192.00 [lb_av] [facility] ([facility]) Body height 69.50 [in_i] 69.50 [in_i] [facility] 5'9.50" Heart rate 80 /min 80 /min [facility] ([facility] Diastolic blood pressure 84 mm[Hg] 84 mm[Hg] [facility] ([facility]) Systolic blood pressure 132 mm[Hg] 132 mm[Hg] [facility] ([facility]) Body mass index (BMI) [Ratio] 28.4 kg/m2 28.4 k g/m2 [facility] ([facility] Heart rate 87 /min 87 /min [facility] ([facility] Diastolic blood pressure 98 mm[Hg] 98 mm[Hg] [facility] ([facility] Systolic blood pressure 168 mm[Hg] 168 mm[Hg] [facility] Body weight 198.00 [lb_av] 198.00 [lb_av] [facility] ([facility] Body height 70 [in_i] 70 [in_i] [facility] ([facility] 5'10" Body height 69.50 [in_i] 69.50 [in_i] [facility] 5'9.50" Heart rate 76 /min 76 /min [facility] ([facility]) Diastolic blood pressure 76 mm[Hg] 76 mm[Hg] [facility] ([facility]) Systolic blood pressure 134 mm[Hg] 134 mm[Hg] [facility] Body mass index (BMI) [Ratio] 27.8 kg/m2 27.8 k g/m2 [facility] ([facility]) Body weight 191.00 [lb_av] 191.00 [lb_av] [facility] ([facility])
--- OUTSIDE RECORDS SUMMARY | 2020-06-08 09:31 | CCD | Continuity of Care Document ---
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 Name Role Phone Jarred Wilhelm JR, MD [...] SIG Qnty Indications Ordering Provide r Date Amlodipine Besylate 5mg Tablets 1 by mouth every day 90tabs Jarred Wilhelm MD 03/17/2020 Meloxicam 15mg Tablets 1 by mouth every [...] 500mg Capsules 1 by mouth every day Marcin MccarthyOTrin[place] 03/24 Metformin HCL 500mg Tablets take two tablets by mouth in am and 2 with supper 360tabs Jarred Wilhelm MD 09/14/2015 Viagra 100mg Tablets as direc seth 10tabs Marcin MccarthyOTrin[place] 03/10/2015 Atorvastatin Calcium 40mg Tablets take one tablet by mouth every day 90shree Wilhelm MD 07/03/2013 Cozaar 100mg Tablets 1 by mouth every day 90tabs Jarred Wilhelm MD 01/02/2013 Multivitamins Tablets 1 po q d Marcin MccarthyOTrinidad 11/30/2010 Calcium 600 + D [id number] Tab lets 1 po bid Marcin MccarthyOTrin[place] 11/30 Vitamin D 400 400Unit ChewtaMarcin CobianOTrinidad 11/30/2010 [address]ir-[address] 1 po qd 30tabs Marcin MccarthyOTrin[place] 11/30/2010 Ocuvite Adult Formula Capsules 1 po qd Marcin MccarthyOTrin[place] 11/30/2010 Immunizations CPT Code Status Date Vaccine Lot # U-Flu Given 02/13/2020 Influenza,Unspecified [id number] Given 01/28/2019 Influenza Vaccin e Quadrivalent Preser/Antibiotic Free [place] Use 47255 Given 11/20/2018 Shingrix Zoster Vaccine (HZV), Recombinant, Subunit, Adjuvanted 80018 Given 03/15/2010 Adacel- Tetanus Diphtheria P ertussis (Age64 & Under) 27140 Refused 01/26/2018 Influenza Virus Vaccine, Quadrivalent (Cciiv4), [...] BMI (Body Mass Index) 27.8 kg/m2 Results Test Acquired Date Facility Test Result H/L Range Note Complete Blood Count 03/17/2020 [facility] Medical Illustrator: Dr Jarred Wilhelm [place], [place] [id number] [phone] WBC 6.8 x10*3/UL 4.1 - 10.9 RBC 4.78 x10*6/UL 4.20 - 6.30 Hemoglobin 15.3 g/dL 12.0 - 18.0 Hematocrit 45.3 % 37.0 - 51.0 MCV 94.6 fL 80.0 - 97.0 MCH 32.0 pg 26.0 - 32.0 MCHC 33.8 g/dL 31.0 - 38.0 RDW 13.2 % 11.6 - 13.7 PLT 281 x10*3/UL 140 - 440 MPV 6.9 FL Low 7.8 - 11.0 Lymph % 22.6 % 10.0 - 58.5 Mid % 5.5 % 1.7 - 9.3 Neut % 71.9 % 37.0 - 92.0 Lymph # 1.5 x10*3/UL 0.6 - 4.1 Mid # 0.4 x10*3/UL 0.1 - 0.6 Neut # 4.9 x10*3/UL 2.0 - 7.8 Comprehensive Chem Profile 03/17/2020 [facility] Medical Illustrator: [place] [address] [phone] Glucose 139 mg/dL High 74 - 99 1 BUN 15 mg/dL 7 - 18 Creatinine 1.0 mg/dL 0.6 - 1.3 Sodium 139 mEq/L 136 - 145 Potassium 4.5 mEq/L 3.5 - 5.1 Chloride 103 mEq/L 98 - 107 Carbon Dioxide 27 mEq/L 21 - 32 Calcium 9.4 mg/dL 8.5 - 10.1 Alk. Phosphatase 69 mg/dL 46 - 116 Total Bilirubin 1.2 mg/dL High 0.2 - 1.0 Ast (Sgot) 20 U/L 15 - 37 Alt (SGPT) 37 U/L 12 - 78 Albumin 4.4 g/dL 3.4 - 5.0 Total Protein 7.1 g/dL 6.4 - 8.2 A/G Ratio 1.63 CALC 1.00 - 1.90 GFR >= 60 mL/min >60 GFR >= 60 mL/min >60 2 A1c 03/17/2020 [facility] , Medical Illustrator: Dr Jarred Wilhelm [place], [place] [id number] [phone] Hba1c 6.8 % High <5.7 3 Est Avg Glucose 148 mg/dL High 60 - 110 Lipid Profile 03/17/2020 [facility] , Medical Illustrator: [place] [address] [phone] Cholesterol 130 mg/dL Low 131 - 200 Triglycerides 49 mg/dL 30 - 150 HDL Cholesterol 56 mg/dL 35 - 60 LDL (Calculated) 64 CALC 50 - 159 Microalbumin/Creatinine Urine 03/17/2020 [facility], Medical Illustrator: [place] [address] [phone] Microalbumin Urine 9.4 mg/L 1.3 - 20.0 Urine Creatinine 146.0 mg/dL High 30.0 - 125.0 Microalb/Creat Ratio 6.4 ug/mg 0.0 - 30.0 1 100-125 mg/dL PRE-DIABET ES/FASTING >126 mg/dL DIABETES/FASTING 2 CHRONIC KIDNEY DISEASE STAGI NG PER NKF STAGE I & II GFR >= 60 NORMAL TO MILDLY DECREASED STAGE III GFR 30-59 MODERATELY DECREASED STAGE IV GFR 15-29 SEVERELY DECREASED STAGE V GFR <15 VERY LITTLE GFR LEFT ESRD GFR <15 ON SUPER[employer] 3 Lab Result Notes: Pre-Diabetes 5.7 - 6.4 % Diabetes = or > 6.5% Procedures Date Code Description Status 03/10/2020 [id number] Diabetic Retinal Eye Exam Comple seth 09/11/2019 [id number] Diabetic Retinal Eye Exam Comple seth 01/07/2019 [id number] Diabetic Retinal Eye Exam Comple seth 07/02/2018 781035105 Diabetic Retinal Eye Exam Comple seth 10/21/2017 [id number] Diabetic Retinal Eye Exam Comple seth 11/29/2016 [id number] Diabetic Foot Exam Completed 06/25/2016 [id number] Diabetic Retinal Eye Exam Comple seth 04/06/2015 [id number] Colonoscopy Completed 12/21/2012 [id number] Colonoscopy Completed 07/21/2011 [id number] Diabetic Retinal Eye Exam Comple seth 12/15/2010 [id number] Diabetic Retinal Eye Exam Comple seth 05/20/2010 523623059 Diabetic Retinal Eye Exam Comple seth 10/29/2009 845213100 Diabetic Retinal Eye Exam Comple seth 04/02/2009 [id number] Diabetic Retinal Eye Exam Comple seth 09/11/2008 818598065 Diabetic Retinal Eye Exam Comple [facility] Medical Devices Description No Information Available Encounters Type Date Location Provider Dx Diagnosis Office Visit 03/17/2020 8:20a [facility] Jarred Wilhelm MD E11.42 Type 2 diabetes mellitus with diabetic p olyneuropathy I10 Essential (primary) hyperten nina E78.00 Pure hypercholesterolemia, u nspecified Z80.0 Family history of malignant neoplasm of digestive organs E66.3 Overweight Z68.27 Body mass index [BMI] 27.0-2 7.9, adult Assessments Date Code Description Provider 03/17/2020 E11.42 Type 2 diabetes mellitus with di abetic polyneuropathy Jarred Wilhelm MD 03/17/2020 I10 Essential (primary) hypertension Jarred Wilhelm MD 03/17/2020 E78.00 Pure hypercholesterolemia, unspe cified Jarred Wilhelm MD 03/17/2020 Z80.0 Family history of malignant neop lasm of digestive organs Jarred Wilhelm MD 03/17/2020 E66.3 Overweight Jarred goodman MD 03/17/2020 Z68.27 Body mass index [BMI] 27.0-27.9, adult Jarred Wilhelm MD Plan of Treatment Future Appointment(s):* 10/05/2020 8:20 am - Jarred Wilhelm MD at [facility] 03/17/2020 - Jarred Wilhelm MD* E11.42 Type 2 diabetes mellitus with diabetic polyneuropathy * I10 Essential (primary) hypertension* Comments:* Hypertension at J[facility]-8 guidelines * E78.00 Pure hypercholesterolemia, unspecified * Z80.0 Family history of malignant neoplasm of digestive organs * E66.3 Overweight * Z68.27 Body mass index [BMI] 27.0-27.9, adult * All * New Medication:* Amlodipine Besylate 5 mg - 1 by mouth every day Functional Status Description No Information Available Mental Status Description No Information Available Referrals Description No Information Available
[2020-06-08] MEDS ORDERED: LIDOCAINE 2% 100MG/5ML SDV (FOR ANES.) As Ordered ONE (10:33)
[2020-06-08] MEDS ORDERED: propofoL 200 MG/20 ML VIAL As Ordered ONE (10:33)
--- NOTE | 2020-06-08 10:58 | ROOR ---
Patient Name: Butch Helm Procedure Date: 06/08/2020 10:39 AM Date of : 1955 Age: 65 Room: [facility] Gender: Male Note Status: Finalized Procedure: Total Colonoscopy to Cecum Indications: High risk colon cancer surveillance: Personal history of colonic polyps, Last colonoscopy: 2014 Providers: Edin Contreras MD Referring MD: Jarred Wilhelm Jr, Md Requesting Provider: Medicines: Monitored Anesthesia Care Complications: No immediate complications. Procedure: Pre-Anesthesia Assessment: - The heart rate, respiratory rate, oxygen saturations, blood pressure, adequacy of pulmonary ventilation, and response to care were monitored throughout the procedure. The Colonoscope was introduced through the anus and advanced to the cecum, identified by appendiceal orifice and ileocecal valve. The colonoscopy was performed without difficulty. The patient tolerated the procedure well. The quality of the bowel preparation was good. Findings: The perianal and digital rectal examinations were normal. Non-bleeding internal hemorrhoids were found during retroflexion. The hemorrhoids were small and Grade I (internal hemorrhoids that do not prolapse). Multiple small and large-mouthed diverticula were found in the recto-sigmoid colon, sigmoid colon and descending colon. The exam was otherwise without abnormality on direct and retroflexion views. Impression: - Non-bleeding internal hemorrhoids. - Diverticulosis in the recto-sigmoid colon, in the sigmoid colon and in the descending colon. - The examination was otherwise normal on direct and retroflexion views. - No specimens collected. - The exam was otherwise normal to the cecum. Recommendation: - Patient has a contact number available for emergencies. The signs and symptoms of potential delayed complications were discussed with the patient. Return to normal activities tomorrow. Written discharge instructions were provided to the patient. - High fiber diet. - Discharge patient to home. - Continue present medications. - Repeat colonoscopy in 5 years for surveillance. - Return to referring physician. - The findings and recommendations were discussed with the patient. Procedure Code(s): --- Professional --- G0105, Colorectal cancer screening; colonoscopy on individual at high risk Diagnosis Code(s): --- Professional --- Z86.010, Personal history of colonic polyps K64.0, First degree hemorrhoids K57.30, Diverticulosis of large intestine without perforation or abscess without bleeding CPT copyright 2019 [employer]. All rights reserved. The codes documented in this report are preliminary and upon orthopedic coder review may be revised to meet current compliance requirements. Edin Contreras MD Edin Contreras MD 06/08/2020 10:58:31 AM Electronically signed by Edin Contreras MD Number of Addenda: 0 Note Initiated On: 06/08/2020 10:39 AM Estimated Blood Loss: Estimated blood loss: none.
[2020-06-08 11:20] VITALS: BP 142/90
== END 2020-06-08 11:26 | disposition home or self-care (01) ==
LOC: M OPP 09:27
PROVIDERS: ATTEND Internal Medicine Gastroenterology
DX: Z12.11 Encounter for screening for malignant neoplasm of colon (principal); Z86.010 Personal history of colon polyps; K64.0 First degree hemorrhoids; K57.30 Diverticulosis of large intestine without perforation or abscess without bleeding; I10 Essential (primary) hypertension; E78.5 Hyperlipidemia, unspecified; E11.9 Type 2 diabetes mellitus without complications; M19.90 Unspecified osteoarthritis, unspecified site; Z88.5 Allergy status to narcotic agent; Z79.82 Long term (current) use of aspirin; Z79.84 Long term (current) use of oral hypoglycemic drugs; Z79.899 Other long term (current) drug therapy

== ENCOUNTER 2020-12-21 05:01 | Emergency (ER) | payer OTHER ==
[~2020-12-21] VITALS: Ht 177.8 cm; Wt 86.6 kg
[~2020-12-21 05:01] MED LIST changes: -NS 1,000 ML IV ONE
[2020-12-21] MEDS ORDERED: NS 1,000 ML IV SCH (06:35)
[2020-12-21 06:58] LABS: BASO # 0.1 10^3/uL (0.0-0.2); BASO % 0.3 % (0.0-1.0); EOS # 0.1 10^3/uL (0.0-0.5); EOS % 0.5 % (0.0-3.0); HEMATOCRIT 42.9 % (42.0-52.0); HEMOGLOBIN 14.7 g/dl (13.5-17.5); LYMPH # 1.1 10^3/uL (1.5-5.0); LYMPH % 6.6 % (24.0-44.0); MEAN CORPUSCULAR HGB CONC 34.3 g/dl (32.0-36.5); MEAN CORPUSCULAR VOLUME 96.4 fl (80.0-96.0); MONO # 1.7 10^3/uL (0.0-0.8); MONO % 10.3 % (2.0-8.0); NEUTROPHILS # 13.2 10^3/uL (1.5-8.5); NEUTROPHILS % 81.8 % (36.0-66.0); PLATELET COUNT, AUTOMATED 289 10^3/uL (150-450); RED BLOOD COUNT 4.45 10^6/uL (4.30-6.10)
[2020-12-21] MEDS ORDERED: ONDANSETRON 4MG/2ML VIAL IV ONE (07:00)
[2020-12-21] MEDS ORDERED: KETOROLAC 30 MG/ML 1ML VIAL IV ONE (07:00)
[2020-12-21 07:21] LABS: WHITE BLOOD COUNT 16.1 10^3/uL (4.0-10.0)
[2020-12-21 07:22] LABS: ALBUMIN 3.7 GM/DL (3.2-5.2); ALT/SGPT 32 U/L (12-78); BILIRUBIN,DIRECT 0.2 MG/DL (0.0-0.2); BILIRUBIN,TOTAL 0.6 MG/DL (0.2-1.0); BLOOD UREA NITROGEN 15 MG/DL (7-18); CARBON DIOXIDE LEVEL 27 MEQ/L (21-32); CHLORIDE LEVEL 107 MEQ/L (98-107); CREATININE FOR GFR 1.13 MG/DL (0.70-1.30); GLOMERULAR FILTRATION RATE > 60.0 (>49); GLUCOSE, FASTING 149 MG/DL (70-100); LIPASE 344 U/L (73-393); POTASSIUM SERUM 4.3 MEQ/L (3.5-5.1); SODIUM LEVEL 138 MEQ/L (136-145); TOTAL PROTEIN 7.1 GM/DL (6.4-8.2)
[2020-12-21] MEDS ORDERED: ISOVUE-370 76% 100ML VIAL As Ordered ONE (07:43)
--- NOTE | 2020-12-21 08:19 | REPVR ---
PROCEDURE INFORMATION: Exam: CTA Chest With Contrast Exam date and time: 12/21/2020 7:59 AM Age: 65 years old Clinical indication: Other: Right posterior back pain leukocytosis TECHNIQUE: Imaging protocol: Computed tomographic angiography of the chest with contrast. 3D rendering (Not supervised by radiologist): MIP and/or 3D reconstructed images were created by the technologist. Radiation optimization: All CT scans at this facility use at least one of these dose optimization techniques: automated exposure control; mA and/or kV adjustment per patient size (includes targeted exams where dose is matched to clinical indication); or iterative reconstruction. Contrast material: ISOVUE 370; Contrast volume: 100 ml; Contrast route: INTRAVENOUS (IV); COMPARISON: No relevant prior studies available. FINDINGS: Pulmonary arteries: No pulmonary embolus in the opacified pulmonary arteries. Aorta: Ectasia of the thoracic aorta. Lungs: Mild interstitial prominence, without focal infiltrate. 2 mm right lower lobe nodule.For patients at low risk (minimal or absent history of smoking and of other known risk factors), no routine follow-up is indicated. For patients at high risk (history of smoking or of other known risk factors), consider optional CT Chest at 12 months. (Reference: [facility]re[facility]). Pleural spaces: No pleural effusion. Heart: Coronary artery calcification. Mild left ventricular hypertrophy. Mediastinal space: Small hiatal hernia. Lymph nodes: Subcentimeter lymph nodes. Bones/joints: Degenerative change and Schmorl's nodes. Soft tissues: Unremarkable. IMPRESSION: 1. No pulmonary embolus in the opacified pulmonary arteries. 2. Mild interstitial prominence, without focal infiltrate. Electronically signed by: Karl Hood On 12/21/2020 08:18:57 AM
--- NOTE | 2020-12-21 08:23 | REPVR ---
PROCEDURE INFORMATION: Exam: CT Abdomen And Pelvis With Contrast Exam date and time: 12/21/2020 7:59 AM Age: 65 years old Clinical indication: Abdominal pain; Flank; Right; Additional info: R flank pain TECHNIQUE: Imaging protocol: Computed tomography of the abdomen and pelvis with contrast. Radiation optimization: All CT scans at this facility use at least one of these dose optimization techniques: automated exposure control; mA and/or kV adjustment per patient size (includes targeted exams where dose is matched to clinical indication); or iterative reconstruction. Contrast material: ISOVUE 370; Contrast volume: 100 ml; Contrast route: INTRAVENOUS (IV); COMPARISON: No relevant prior studies available. FINDINGS: Liver: Fatty infiltration of the liver. Gallbladder and bile ducts: Mildly dilated gallbladder. No cholelithiasis or biliary ductal dilatation. Pancreas: No pancreatic mass or ductal dilatation. Spleen: No splenomegaly. Adrenal glands: Unremarkable adrenals. Kidneys and ureters: Moderate right hydronephrosis in association with a 4 mm right ureteral calculus at the L4 level. Right perinephric fluid and infiltration of perinephric fat. Renal cysts, including a 2.5 cm left lower pole cyst. 1 mm nonobstructing left renal calculi. Stomach and bowel: Wall thickening in the decompressed stomach. Mild small bowel dilatation without a transition zone. Prominent stool and diverticula, without pericolonic inflammation. Appendix: No acute appendicitis. Intraperitoneal space: No significant free fluid. Vasculature: Vascular calcification. No abdominal aortic aneurysm. Lymph nodes: Subcentimeter lymph nodes. Urinary bladder: Unremarkable bladder. Reproductive: Enlarged prostate producing extrinsic compression of the bladder base. Punctate prostate calcification. Bones/joints: Degenerative change and disc bulging. Soft tissues: Calcification at the gluteal muscle attachment sites. IMPRESSION: 1. Moderate right hydronephrosis in association with a 4 mm right ureteral calculus at the L4 level. 2. 1 mm nonobstructing left renal calculi. 3. Additional findings as described above. COMMENTS: Consistent with the [employer]'s Incidental Findings Committee white paper (J Am Dean Radiol 2018): Any incidental renal lesion less than 1 cm or classified as too small to characterize, or any incidental cystic renal lesion characterized as simple-appearing, is likely benign. No follow-up imaging is recommended for these lesions per consensus recommendations based on imaging criteria. Electronically signed by: Karl Hood On 12/21/2020 08:23:34 AM
[2020-12-21] MEDS ORDERED: IBUP-1022 PO (08:56)
[2020-12-21] MEDS ORDERED: FLOM0.4C39 PO (08:56)
[2020-12-21 09:06] VITALS: BP 149/86
== END 2020-12-21 09:16 | disposition home or self-care (01) ==
LOC: M ED 05:01
DX: N13.30 Unspecified hydronephrosis (principal); N23 Unspecified renal colic; I10 Essential (primary) hypertension; E78.5 Hyperlipidemia, unspecified; Z79.899 Other long term (current) drug therapy; Z79.82 Long term (current) use of aspirin; Z88.5 Allergy status to narcotic agent; Z88.8 Allergy status to other drugs, medicaments and biological substances
CPT/HCPCS: 71275; 74177; 80048; 80076; 81001; 83690; 85025; 93041; 96361; 96374; 96375; 99284; J1885; J2405; Q9967

== ENCOUNTER → 2021-04-19 | Outpatient (CLI) | payer OTHER ==
[~2021-04-19] MED LIST changes: +FLOM0.4C39 PO; +IBUP-1022 PO; +ISOVUE-370 76% 100ML VIAL As Ordered ONE; +LOSA100T45 PO; -LOSA100T50 PO
== END ==
LOC: M RAD 08:01
PROVIDERS: ATTEND Urology
DX: N28.1 Cyst of kidney, acquired (principal); N20.0 Calculus of kidney; K44.9 Diaphragmatic hernia without obstruction or gangrene; K57.30 Diverticulosis of large intestine without perforation or abscess without bleeding; N40.1 Benign prostatic hyperplasia with lower urinary tract symptoms
CPT/HCPCS: 74178; Q9967

== ENCOUNTER → 2021-05-07 | Outpatient (CLI) | payer OTHER ==
[~2021-05-07] MED LIST changes: -ISOVUE-370 76% 100ML VIAL As Ordered ONE
[2021-05-07 13:54] LABS: BASO % 0.4 % (0.0-1.0); EOS # 0.1 10^3/uL (0.0-0.5); EOS % 0.9 % (0.0-3.0); HEMATOCRIT 39.9 % (42.0-52.0); HEMOGLOBIN 13.1 g/dl (13.5-17.5); LYMPH # 1.4 10^3/uL (1.5-5.0); LYMPH % 17.5 % (24.0-44.0); MEAN CORPUSCULAR HEMOGLOBIN 32.1 pg (27.0-33.0); MEAN CORPUSCULAR HGB CONC 32.8 g/dl (32.0-36.5); MEAN CORPUSCULAR VOLUME 97.8 fl (80.0-96.0); MONO # 0.6 10^3/uL (0.0-0.8); MONO % 8.2 % (2.0-8.0); NEUTROPHILS # 5.7 10^3/uL (1.5-8.5); NEUTROPHILS % 72.7 % (36.0-66.0); PLATELET COUNT, AUTOMATED 323 10^3/uL (150-450); RED BLOOD COUNT 4.08 10^6/uL (4.30-6.10); WHITE BLOOD COUNT 7.8 10^3/uL (4.0-10.0)
[2021-05-07 13:59] LABS: APPEARANCE, URINE TURBID (CLEAR); BACTERIA, URINE AUTO NEGATIVE (NEGATIVE); BILIRUBIN, URINE AUTO NEGATIVE (NEGATIVE); BLOOD, URINE BLOOD NEGATIVE (NEGATIVE); COLOR, URINE AMBER (YELLOW); GLUCOSE, URINE (UA) AUTO NEGATIVE (NEGATIVE); KETONE, URINE AUTO TRACE mg/dL (NEGATIVE); LEUKOCYTE ESTERASE, URINE AUTO NEGATIVE (NEGATIVE); MUCUS, URINE SMALL (NEGATIVE); NITRITE, URINE AUTO NEGATIVE (NEGATIVE); PROTEIN, URINE AUTO NEGATIVE (NEGATIVE); RBC, URINE AUTO 3 /HPF (0-3); SQUAMOUS EPITHELIAL CELL UR AU 0 /HPF (0-6); UROBILINOGEN, URINE AUTO 0.2 mg/dL (0.0-2.0); WBC, URINE AUTO 0 /HPF (0-3)
[2021-05-07 14:24] LABS: BLOOD UREA NITROGEN 20 MG/DL (7-18); CALCIUM LEVEL 9.7 MG/DL (8.8-10.2); CARBON DIOXIDE LEVEL 27 MEQ/L (21-32); CHLORIDE LEVEL 102 MEQ/L (98-107); CREATININE FOR GFR 0.97 MG/DL (0.70-1.30); GLOMERULAR FILTRATION RATE > 60.0 (>49); GLUCOSE, FASTING 218 MG/DL (70-100); POTASSIUM SERUM 4.4 MEQ/L (3.5-5.1); SODIUM LEVEL 136 MEQ/L (136-145)
== END ==
LOC: M ADAMS 08:10
PROVIDERS: ATTEND Nurse Practitioner Women's Health
DX: Z01.812 Encounter for preprocedural laboratory examination (principal); N13.2 Hydronephrosis with renal and ureteral calculous obstruction

== ENCOUNTER → 2021-05-10 | Outpatient (REF) | payer OTHER | LOC: M SMT 12:57 | PROVIDERS: ATTEND Urology | DX: N20.0 Calculus of kidney (principal) ==

== ENCOUNTER → 2021-11-02 | Outpatient (CLI) | payer OTHER ==
[~2021-11-02] MED LIST changes: -D31000TA2 PO; +VITA100093 PO
== END ==
LOC: M ADAMS 07:58
PROVIDERS: ATTEND Urology
DX: N20.0 Calculus of kidney (principal)

== ENCOUNTER → 2022-11-08 | Outpatient (CLI) | payer OTHER ==
[~2022-11-08] MED LIST changes: -LOSA100T45 PO; +LOSA100T46 PO
== END ==
LOC: M ADAMS 07:30
PROVIDERS: ATTEND Urology
DX: N20.0 Calculus of kidney (principal)

== ENCOUNTER 2025-02-03 08:44 | Day surgery (SDC) | payer MEDICARE, OTHER ==
[~2025-02-03] VITALS: Ht 177.8 cm; Wt 82.6 kg
[~2025-02-03 08:44] MED LIST changes: +FARX1TAB3 PO; -FLOM0.4C39 PO; -IBUP-1022 PO; +IBUP600T42 PO; +TAMS-18 PO
[2025-02-03] MEDS ORDERED: LIDOCAINE 2% 100 MG/5 ML SDV (FOR ANES.) IV ONE (08:45)
[2025-02-03 10:54] VITALS: BP 139/86; O2SAT 98
== END 2025-02-03 11:06 | disposition home or self-care (01) ==
LOC: M OPP 08:44
PROVIDERS: ATTEND Internal Medicine Gastroenterology
DX: K57.30 Diverticulosis of large intestine without perforation or abscess without bleeding (principal); K64.0 First degree hemorrhoids; Z86.0100 Personal history of colon polyps, unspecified; Z88.5 Allergy status to narcotic agent; Z88.8 Allergy status to other drugs, medicaments and biological substances; Z79.82 Long term (current) use of aspirin; Z79.84 Long term (current) use of oral hypoglycemic drugs; Z79.899 Other long term (current) drug therapy